=== PATIENT | male | born 1990 | race Two or more races ===

== ENCOUNTER → 2021-06-14 11:59 | Outpatient (BNVA) | payer SELFPAY | PROVIDERS: PCP Pediatrics; Visit Provider Nurse Practitioner Family | DX: Z13.89 Encounter for screening for other disorder (principal) ==

== ENCOUNTER → 2022-07-15 14:07 | Outpatient (BNVA) | payer OTHER, SELFPAY | PROVIDERS: PCP Pediatrics; Visit Provider Nurse Practitioner Family | DX: G24.9 Dystonia, unspecified (principal); F39 Unspecified mood [affective] disorder; Z96.89 Presence of other specified functional implants | CPT/HCPCS: 99212 ==

== ENCOUNTER → 2022-10-31 13:01 | Outpatient (BNVA) | payer OTHER, SELFPAY | PROVIDERS: PCP Pediatrics; Visit Provider Nurse Practitioner Family ==

== ENCOUNTER → 2022-10-31 13:01 | Outpatient (BNVA) | payer OTHER, SELFPAY | PROVIDERS: PCP Pediatrics; Visit Provider Nurse Practitioner Family ==

== ENCOUNTER 2022-11-06 15:28 | Outpatient (AMB) | payer OTHER, SELFPAY ==
--- NOTE | 2022-11-06 15:29 | A.OFFVIS_ITS ---
Intake Intake Visit Reasons: TELE f/u appt Intake Note: Patient for follow up. Patient states This is a follow up from our missed appointment the other day Allergies From DILANTIN Allergy (Unknown, Uncoded 11/06/22 15:29) BRUISING Phenytoin Sodium Allergy (Unknown, Uncoded 11/06/22 15:29) Unknown Medication List - Last Reconciled 11/06/22 by GOLDEN Parker acetaminophen (Tylenol) 325 mg PO QID PRN baclofen 40 mg (2 x 20 mg) PO TID 90 days chlorthalidone 50 mg PO DAILY clonazepam 1.5 mg (3 x 0.5 mg) PO BEDTIME 30 days clonazepam 2 mg PO QID 30 days diazepam 10 mg PO QID 30 days trazodone 50 mg PO BEDTIME HPI HPI Comments History of Present Illness Details 32-yr-old male presents for f/u televide o visit via [employer], accompanied by his mother and family. Pt's mother reports brain MRI was normal. Pt did not tolerate trial of Diazepam, his dystonia worsened. Since, we switched pt back to Clonazepam at a slightly increased dose of 2mg qid. His dytonia is less, but continues to be significant. He cannot walk. His body is often postured to one side. His hands are often flexed closed. It can be difficult to help pt wash/dress. Mom has decreased the Baclofen from 40mg tid to 40mg bid and 20mg qhs- as pt was having some urinary retention difficulties, which resolved with the dose reduction. He is eating and drinking well. His mood is better, pt is more open to attending appt's, and doing the f/u needed to replace his DBS. He had a tele-genetics visist yesterday- per mom, they have been advised to have genetic testing- but they are waiting to hear if insurance will cover this. [facility] Social History Alcohol intake: never Patient Tobacco Use Status: Never used Tobacco Review of Systems Const All systems reviewed & are unremarkable except as noted in HPI and below Physical Exam Const General: cooperative, no acute distress, well developed and alert Resp Effort & Inspection: normal respiratory effort and able to speak in complete sentences Neuro Other: Pt alert, non-verbal, does respond w/ his usual eye movements. Sitting reclined in his chair. Generalized dystonia- marked. 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 Code(s): G24.9 - Dystonia, unspecified (2) Status post deep brain stimulator placement: Comment: bilateral GPI Code(s): Z96.89 - Presence of other specified functional implants (3) Mood disorder: Code(s): F39 - Unspecified mood [affective] disorder Plan Increase Clonazepam from 2mg qid to 2-2.5mg qid- in hopes this lessens dystonia/spasticity- order sent for 0.5mg tab. Monitor for increased sedation. Diazepam- stopped- ineffective. Continue Artane 2mg 1/2 tab qam. Continue Baclofen up to 40mg tid Continue Trazodone 50mg qhs. Offered to retry Botox for hand posturing- pt declines at this time. F/u w/ [facility] r/t genetic, DBS work-up. Will request brain MRI report from [facility]. Future considerations- Trying alternate muscle relaxer to Baclofen- if increase in Clonazepam not effective or not tolertaed. f/u in 3 months or sooner prn. Medications: Changed From clonazepam 1.5 mg (3 x 0.5 mg) PO BEDTIME 30 days 90 tabs 3RF G24.9 - Dystonia, unspecified, Z96.89 - Presence of other specified functional implants To clonazepam take w/ 2mg tab (total 2.5mg qid) 0.5 mg PO QID 30 days 120 tabs 3RF G24.9 - Dystonia, unspecified, Z96.89 - Presence of other specified functional implants Telehealth Telehealth Location of provider rendering services: practice address Location of patient: address on file Patient Identification confirmed using: Name, : Yes Telehealth method: video Patient verbally consented to treatment: Yes Patient verbally consented to billing insurance company: Yes Patient informed of any privacy concerns related to visit: Yes Minutes spent on Phone/Video with Pt.: 22 Coding Level of Care Code Tele Est Pt Level 4 (24347) Diagnoses Dystonia G24.9 Status post deep brain stimulator placement Z96.89 Mood disorder F39
== END 2022-11-06 16:00 ==
PROVIDERS: PCP Pediatrics; Visit Provider Nurse Practitioner Family
DX: G24.9 Dystonia, unspecified (principal); Z96.82 Presence of neurostimulator; F39 Unspecified mood [affective] disorder
CPT/HCPCS: 99214

== ENCOUNTER → 2022-11-06 15:28 | Outpatient (BNVA) | payer OTHER, SELFPAY | PROVIDERS: PCP Pediatrics; Visit Provider Nurse Practitioner Family ==

== ENCOUNTER 2023-05-06 15:18 | Outpatient (AMB) | payer MEDICAID, SELFPAY ==
--- NOTE | 2023-05-06 15:34 | A.OFFVIS_ITS ---
Intake Intake Visit Reasons: Follow up Dystonia Intake Note: Patient presents for follow up dystonia. no issues or concerns Allergies From DILANTIN Allergy (Unknown, Uncoded 05/06/23 15:44) BRUISING Phenytoin Sodium Allergy (Unknown, Uncoded 05/06/23 15:44) Unknown Medication List - Last Reconciled 05/06/23 by GOLDEN Parker acetaminophen (Tylenol) 325 mg PO QID PRN baclofen 40 mg (2 x 20 mg) PO TID 90 days chlorthalidone 50 mg PO DAILY clonazepam 0.5 mg orally take w/ 2mg tab (total 2.5mg qid); 30 days clonazepam 2 mg PO QID 30 days diazepam 10 mg PO QID 30 days trazodone 50 mg PO BEDTIME HPI HPI Comments History of Present Illness Details 33 -yr-old male presents for f/u visit, accompanied by his caregivers. He did receive the results of the dystonia/movement d/o genetic [place] [facility] [place] no genetic etiology identified. He does not currently have a f/u w/ [facility]. Pt was doing PT, but this was paused as he had Covid-19. They would like a referral back to PT. They wonder about the Baclofen pump- however pt is not interested in this. He would be interested in revisiting the DBS. Pt continues to have bothersome generalized dystonia. His tongue will protrude while trying to eat. He needs extensive assist with all ADLs. He is not walking much. Denies any skin issues. His caregivers note that he is more flexible , has less movements, and can walk better w/ certain people, such as when his dtr's mother comes to visit. The increase in Clonazepam only helped some. He primarily communicates through verbal expression and eye movements. His caregivers note that pt is able to use a phone to say order from [employer] and has his own TicToc (though someone does help w/ this). He does not have a formal communication device. [facility] Social History Alcohol intake: never Patient Tobacco Use Status: Never used Tobacco Review of Systems Const All systems reviewed & are unremarkable except as noted in HPI and below Physical Exam Const General: cooperative and no acute distress Resp Effort & Inspection: normal respiratory effort and able to speak in complete sentences Neuro Other: Alert Non-verbal Communicates yes appropriately by upward eye movement, and more rarely w/ thumbs up sign. Marked generalized dystonia, prone to lumbar hyperextension. Right hand held in flexion- using a washcloth as a splint. Asked pt to perform finger-nose (pt-examiner), pt unable to initiate movement. 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 Code(s): G24.9 - Dystonia, unspecified (2) Gait difficulty: Code(s): R26.9 - Unspecified abnormalities of gait and mobility (3) Status post deep brain stimulator placement: Comment: bilateral GPI Code(s): Z96.89 - Presence of other specified functional implants (4) Mood disorder: Code(s): F39 - Unspecified mood [affective] disorder (5) Nonverbal: Code(s): R47.01 - Aphasia Plan Advised to call [facility] [place] [place] and make a f/u appt to discuss DBS. At this point, I would not think pt is a candidate for a baclofen pump d/t the severity of his generalized and trunk dystonia. Resume PT- order written. Will reach out to our Speech & Hearing clinic- ? if they can assist w/ obtaining an adaptive communication device. Trial CD-LD 25-100mg 1 tab bid- to see of dystonia is at all levodopa responsive, may need to try a higher dose to see full effect. Continue Clonazepam 2-2.5mg qid. Diazepam- stopped- ineffective. Continue Artane 2mg 1/2 tab qam. Continue Baclofen up to 40mg tid Continue Trazodone 50mg qhs. Offered to retry Botox for hand posturing- pt declines at this time. f/u in 3-4 months or sooner prn. Orders: Orders PT Evaluation and Treatment 05/06/23 G24.9 - Dystonia, unspecified, R26.9 - Unspecified abnormalities of gait and mobility, Z96.89 - Presence of other specified functional implants Medications: New carbidopa-levodopa 25-100 mg take w/ a cracker 30 minutes before breakfast and dinner, 1 tab PO BID 30 days 60 tabs 3RF Coding Level of Care Code Est Pt Level 4 (70877) Diagnoses Dystonia G24.9 Gait difficulty R26.9 Status post deep brain stimulator placement Z96.89 Mood disorder F39 Nonverbal R47.01
== END 2023-05-06 16:23 | disposition home or self-care (01) ==
PROVIDERS: PCP Pediatrics; Visit Provider Nurse Practitioner Family
DX: G24.9 Dystonia, unspecified (principal); R26.9 Unspecified abnormalities of gait and mobility; Z96.89 Presence of other specified functional implants; F39 Unspecified mood [affective] disorder; R47.01 Aphasia
CPT/HCPCS: 99214

== ENCOUNTER → 2023-05-06 15:18 | Outpatient (BNVA) | payer MEDICAID, SELFPAY | PROVIDERS: PCP Pediatrics; Visit Provider Nurse Practitioner Family | DX: G24.9 Dystonia, unspecified (principal); R26.9 Unspecified abnormalities of gait and mobility; F39 Unspecified mood [affective] disorder; R47.01 Aphasia; Z79.899 Other long term (current) drug therapy; Z96.89 Presence of other specified functional implants | CPT/HCPCS: 99212 ==

== ENCOUNTER 2023-09-10 13:12 | Outpatient (AMB) | payer MEDICAID, SELFPAY ==
--- NOTE | 2023-09-10 13:13 | MHC.OFFVIS ---
Intake Visit Reasons: 4 mo f/u-Unable to lvm Intake Note: Patient presents for 4 month follow up. 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 Family provides most of history, and pt endorses information through verbal expression and eye movements. Pt had recent [facility] admission for tx of pneumonia. Pt states he is home now- feeling better, but he still has some pulmonary congestion. [facility] [place] could not complete a MBS. They were advised to give him pureed foods and to not allow him to eat laying down. They are giving him very chopped up foods only when he is sitting up now that he is at home. Pt has an appt w/ PCP later today. Pt's family notes that while pt was hospitalized- all his po meds were stopped. He was given lorazepam instead of clonazepam. Per family- pt had increased dystonia and new onset hallucinations while admitted.. He had genetics f/u appt- per family, no genetic etiology for his dystonia was identified. Pt has not heard from [facility] for f/u appt yet. He is now open to using a communication device. Pt's mother states overall, pt has been much more agreeable to his medical care, appointments, etc. He is not sure that the CD-LD was helpful, so did not resume it upon returning home. Mom feels movements are a bit better since he is sitting up more regularly. Pt had been doing PT prior to the hospitalization, which he plans to resume. They mention PT advised them to try applying ankle weights to help pt stand up. Pt is cusious about stem cell tx- he has seen videos on-line baout this. [facility] Social History Alcohol intake: never Patient Tobacco Use Status: Never used Tobacco Review of Systems Const All systems reviewed & are unremarkable except as noted in HPI and below Physical Exam Const General: cooperative and no acute distress Resp Effort & Inspection: normal respiratory effort and able to speak in complete sentences Neuro Other: Non-verbal Communicates yes appropriately by upward eye movement, and more rarely w/ thumbs up sign. Generalized dystonia, prone to lumbar hyperextension- slightly decreased since last visit. Right hand held in flexion- using a washcloth as a splint. 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 We will f/u w/ [facility] and make a f/u appt to discuss DBS. Pt is motivated to attend all his emdical appt's at this time. At this point, I would not think pt is a candidate for a baclofen pump d/t the severity of his generalized and trunk dystonia. Resume PT. Order written for Speech & Hearing eval & tx- for safe swallowing strategies and eval for augmentative communication device. Will order Barrium swallow study. Continue to only eat sitting up and to sit up for 45-60 minutes after eating. Continue modified diet texture. Advised to double swallow after each bite. May continue to hold CD-LD 25-100mg 1 tab bid for now until his resp s/s have improved. Consider retrying once feeling better, may need to try a higher dose to see full effect. Continue Clonazepam 2.5mg qid. Continue Baclofen up to 40mg tid Continue Trazodone 50mg qhs. Offered to retry Botox for hand posturing- pt declines at this time. Previous trials- Diazepam- stopped- ineffective. Artane- not tolerated. ? f/u in 3-4 months or sooner prn. 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 0.5 mg PO QID 90 days 360 tabs 1RF Changed From clonazepam 2 mg PO QID 30 days 120 tabs 3RF G24.9 - Dystonia, unspecified To clonazepam 2 mg PO QID 90 days 360 tabs 1RF G24.9 - Dystonia, unspecified Discontinued clonazepam Discontinued Reason: Ancillary Entered New Order (1/2 x 1 mg) 0.5 mg orally take w/ 2mg tab (total 2.5mg qid); 30 days 60 tabs 3RF Coding Level of Care Code Est Pt Level 4 (23213) Diagnoses Dystonia G24.9 Status post deep brain stimulator placement Z96.89 Dysphagia R13.10 Communication impairment F80.9
== END 2023-09-10 14:09 | disposition home or self-care (01) ==
PROVIDERS: PCP Pediatrics; Visit Provider Nurse Practitioner Family
DX: G24.9 Dystonia, unspecified (principal); Z96.89 Presence of other specified functional implants; R13.10 Dysphagia, unspecified; F80.9 Developmental disorder of speech and language, unspecified
CPT/HCPCS: 99214

== ENCOUNTER → 2023-09-10 13:12 | Outpatient (BNVA) | payer MEDICAID, SELFPAY | PROVIDERS: PCP Pediatrics; Visit Provider Nurse Practitioner Family | DX: G24.9 Dystonia, unspecified (principal); R13.10 Dysphagia, unspecified; F80.9 Developmental disorder of speech and language, unspecified; Z96.89 Presence of other specified functional implants | CPT/HCPCS: 99212 ==

== ENCOUNTER → 2024-03-30 14:36 | Outpatient (AMB) | payer MEDICAID, SELFPAY ==
--- NOTE | 2024-03-30 14:37 | A.OFFVIS_ITS ---
Intake Visit Reasons: 6 Month f/u Intake Note: battery change in November. Allergies phenytoin [From Dilantin] Allergy (Unknown, Verified 03/30/24 14:40) Bruising Phenytoin Sodium Allergy (Unknown, Uncoded 09/10/23 13:18) Unknown Medication List - Last Reconciled 03/30/24 by GOLDEN Parker acetaminophen (Tylenol) 325 mg PO QID PRN baclofen 40 mg (2 x 20 mg) PO TID 90 days chlorthalidone 50 mg PO DAILY clonazepam 0.5 mg PO QID 90 days clonazepam 2 mg PO QID 90 days trazodone 50 mg PO BEDTIME HPI Comments Details: 33-yr-old male presents for f/u televideo visit, accompanied by his mother and dtr. Family provides most of history, and pt endorses information through verbal expression and eye movements. Visit was converted to televeideo today as patient has had flu-like symptoms for the past 3 days. Fever, cough, decreased appetite. He is taking fluids and resting. No acute shortness of breath. Pt underwent DBS battery replacement in November 2023, without complication. The DBS was activated in January. And the settings were further adjusted in February. Unfortunately, a few days after the last adjustment, he began having increased involuntary movements. His legs were moving up uncontrollably. So, patient's family turned the DBS off. He has follow-up appointment in [place] on April 29. They note, he was supposed to start home PT, however they have not heard from anybody yet. He is still open to using a communication device. Patient miss both the MBS and the THREADING MACHINE SETTER appointments in October, as he was hospitalized at that time for treatment of pneumonia. August 2023 MBS at [facility], results were nondiagnostic, as patient was unable to complete the exam due to involuntary movements and inability to ?follow directions?. [facility] Social History Alcohol intake: never Patient Tobacco Use Status: Never used Tobacco Physical Exam Const General: cooperative and no acute distress Resp Effort & Inspection: normal respiratory effort Neuro Other: Alert, responsive, non-verbal Appear slightly flushed Communicates yes appropriately by upward eye movement, and more rarely w/ thumbs up sign. Patient is laying in his bed, generalized dystonia- predominantly patient arms are extended overhead and legs posture in intermittent straight leg raises. 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 Reinforced that DBS therapy for dystonia may take days to weeks to see full effect from. Family is hoping that we can help manage DBS more locally, which we are happy to assist with, given Dr Noguera is in agreement. We will reorder home PT and THREADING MACHINE SETTER eval & tx, as patient can not leave his home in any capacity without physical assist from another person due to the severity of his generalized dystonia. PT eval and treat for range of motion, tone, mobility, pain eval and treat. THREADING MACHINE SETTER eval and treat for dysphagia. Once home PT/THREADING MACHINE SETTER is completed, we will re-initiate referral for Speech & Hearing eval & tx- for safe swallowing strategies and eval for augmentative communication device. We will reorder Barrium swallow study. Advised to to only eat sitting up and to sit up for 45-60 minutes after eating. Continue modified diet texture. Advised to double swallow after each bite. Continue Clonazepam 2.5mg qid. Continue Baclofen up to 40mg tid Continue Trazodone 50mg qhs. Offered to retry Botox for hand posturing- pt declines at this time. Previous trials- Diazepam- stopped- ineffective. Artane- not tolerated. CD-LD 25-100 mg 1 tab b.i.d.- patient did not find overly beneficial ? f/u in 3-4 months or sooner prn. Orders: Orders [place] Modified Barium Swallow Today G24.9 - Dystonia, unspecified, R13.10 - Dysphagia, unspecified, Z96.89 - Presence of other specified functional implants Referrals [facility] Referral F80.9 - Developmental disorder of speech and language, unspecified, G24.9 - Dystonia, unspecified, R13.10 - Dysphagia, unspecified, Z96.89 - Presence of other specified functional implants Medications: Discontinued carbidopa-levodopa 25-100 mg take w/ a cracker 30 minutes before breakfast and dinner, Discontinued Reason: Doctor's Order 1 tab PO BID 30 days 60 tabs 6RF Coding Level of Care Code Tele Est Pt Level 4 (23559) Diagnoses Dystonia G24.9 Status post deep brain stimulator placement Z96.89 Dysphagia R13.10 Communication impairment F80.9
--- OUTSIDE RECORDS SUMMARY | 2024-03-30 15:45 | XMS_ITS | Clinical Summary ---
Author Organization [employer] Address [address] [place] [address] 7 [place] [address] Care Team Providers Care Business Education Teacher Name Role Phone Ally Allen MD Primary Care Provider [phone] Allergies Active Allergy Reactions Criticality Noted Date Comments Phenytoin Hives,Rash Medium 09/04/2009 hematoma Medications FLUoxetine (PROzac) 10 MG capsule 10 MG ORALLY EVERY MORNING FOR 90 DAYS 3 Active clonazePAM (KlonoPIN) 2 MG tablet Take 1 tablet by mouth 4 times daily. 3 Active baclofen (Lioresal) 20 MG tablet TAKE 2 TABLETS BY MOUTH 3 TIMES A DAY FOR 90 DAYS 3 Active senna-docusate (Senokot S) 8.6-50 MG tablet Take 1 tablet by mouth at bed time. 0 Active chlorthalidone (Hygroton) 50 MG tabletIndications :Primary hypertension TAKE 1 TABLET BY MOUTH EVERY DAY 90 tablet 1 4 Active clonazePAM (KlonoPIN) 1 MG tablet Take 0.5 tablets by mouth 4 times daily. With 2 mg 4 Active albuterol (2.5 MG/3ML) 0.083% nebulizer solution INHALE 3 ML EVERY 6 HOURS NEEDED FOR WHEEZING 4 Active carbidopa-levodop a (Sinemet) 25-100 MG tablet PLEASE SEE ATTACHED FOR DETAILED DIRECTIONS 4 Active Misc. Devices (Pulse Oximeter For Finger) miscIndications:A spiration pneumonia, unspecified aspiration pneumonia type, unspecified laterality, unspecified part of lung (CMS/FORMER[facility]) Check O2 Sat every 4 hours. Call the office if O2 Sat < 90%. 1 each 4 Active guaiFENesin (Mucinex) 600 MG 12 hr tabletIndications :Aspiration pneumonia, unspecified aspiration pneumonia type, unspecified laterality, unspecified part of lung (CMS/HCC) Take 1 tablet (600 mg) by mouth 2 times daily. Do not crush, chew, or split. 30 tablet 4 09/11/19 25 Active traZODone (Desyrel) 50 MG tabletIndications :Insomnia due to medical condition TAKE 1 TABLET BY MOUTH EVERYDAY AT BEDTIME 90 tablet 2 4 Active Active Problems Problem Noted Date Diagnosed Date Benign essential hypertension 09/05/2015 Generalized dystonia 03/08/2012 Insomnia 03/08/2012 Movement disorder 03/31/2011 Overview (04/25/2022): Movement disorder - Dystonia Immunizations Name Administration Dates Next Due Influenza injectable quadriv alent IIV4 with preservative 04/24/2022 Social History Tobacco Use Types Packs/Day Years Used Date Smoking Tobacco: Never Passive Smoke Exposure: Never Smokeless Tobacco: Never Tobacco Cessation:Counseling Given: Not Answered Depression Answer Date Recorded Patient Health Questionnaire-9 Score 14 04/24/2022 Housing Stability Answer Date Recorded What is your housing situation today? I have sujata nuno 12/29/[address] you li ve. Do you have problems with any of the following? None of the above 12/29/2022 Food Insecurity Answer Date Recorded Within the past 12 months, y ou worried that your food would run out before you got money to buy more: Never True 12/29/2022 Within the past 12 months,th e food you bought just didn't last and you didn't have enough money to get more: Never True 07/2022 Transportation Answer Date Recorded In the past 12 months, has l ack of transportation kept you from medical appts, meetings, work or from getting things needed for daily living? No 12/29/2022 Utilities Answer Date Recorded In the past 12 months, has t he electric, gas, oil or water company threatened to shut off services in your home? No 12/29/2022 Depression Answer Date Recorded Patient Health Questionnaire-2 Score 4 04/24/2022 Sex and Gender Information Value Date Recorded Sex Assigned at Male 12/23/2021 10:19 AM EDT Legal Sex Male 10:19 AM EDT Gender Identity Male 12/23/2021 10:19 AM EDT Sexual Orientation Choose not to disclose 2021 10:19 AM EDT Last Filed Vital Signs Vital Sign Reading Time Taken Comments Blood Pressure 150/90 09/10/2023 2:58 PM EDT Pulse 127 09/10/2023 2:44 PM EDT Temperature 36.7 ??C (98 ??F) 04/24/2022 11:04 AM EST Respiratory Rate 20 09/10/2023 2:44 PM EDT Oxygen Saturation 92% 09/10/2023 2:44 PM EDT Inhaled Oxygen Concentration - - Weight 74.8 kg (165 lb) 09/10/2023 2:44 PM EDT Height 160 cm (5' 3 ) 03/22/2019 12:01 AM EST Body Mass Index 29.23 03/22/2019 12:01 AM EST Plan of Treatment Upcoming Encounters Date Type Department Care Team (Late st Contact Info) Description 05/05/2024 2:15 PM EDT Office Visit [facility] MED & PEDS [address] [place] [address] Ally Allen MD [address] [place] [address] Health Maintenance Due Date Last Done Comments HIV Screening 1992 Lipid Panel 1992 Alcohol/Substance Use Screening 2004 Family Planning (PISQ) 04/24/2007 Hepatitis C Screening 2010 Hepatitis B Vaccines (3 of 3 - 19+ 3-dose series) 04/18/2016 02/22/2016, 09/18/2015 Depression Monitoring (PHQ-9) 10/25/2022 04/24/2022, 04/24/2022 Depression Screening 04/25/2023 04/24/2022, 04/25/19 23 SDOH Screening 04/25/2023 04/24/2022 COVID-19 Vaccine ( season) 2023 Influenza Vaccine (#1) 2023 3, 02/22/2016, 10/26/2012, Additional history exists Tobacco Screening 09/09/2024 09/10/2023 DTaP/Tdap/Td Vaccines (2 - Td or Tdap) 09/04/2025 09/05/2015 Zoster Vaccines (1 of 2) 2042 RSV Patients and Patients Aged 60 years or older (1 - 1-dose 75+ series) 04/24/2067 HIB Vaccines Aged Out No longer eligi ble based on patient's age to complete this topic HPV Vaccines Aged Out No longer eligi ble based on patient's age to complete this topic Hepatitis A Vaccines Aged Out No long er eligible based on patient's age to complete this topic IPV Vaccines Aged Out No longer eligi ble based on patient's age to complete this topic Meningococcal Vaccine Aged Out No mojgan dante eligible based on patient's age to complete this topic Pneumococcal Vaccine: Pediatrics (0 to 5 Years) and At-Risk Patients (6 to 49) Years) Aged Out No longer eligible based on patient's age to complete this topic RSV under 20 months Aged Out No longe r eligible based on patient's age to complete this topic Rotavirus Vaccines Aged Out No longer eligible based on patient's age to complete this topic Insurance C3 Care Teams Business Education Teacher Relationship Specialty Start Date End Date Ally Allen MD [address] [place] [address] PCP - General Family Medicine 02/23/18
--- OUTSIDE RECORDS SUMMARY | 2024-03-30 15:45 | XMS_ITS | Encounter Summary ---
Author Organization [employer] [facility] Address [address] [place] [address] Care Team Providers Care Medical Laboratory Technicians Name Role Phone Ally Allen MD Primary Care Provider [phone] Encounter Details Date Type Department Care Team (Late Contact Info) Description 03/25/2022 Abstract [facility] MED & PEDS [address] [place] [address] Ally Allen MD [address] [place] [address] Social History Tobacco Use Types Packs/Day Years Used Date Smoking Tobacco: Never Assessed Sex and Gender Information Value Date Recorded Sex Assigned at Male 12/23/2021 10:19 AM EDT Legal Sex Male 10:19 AM EDT Gender Identity Male 12/23/2021 10:19 AM EDT Sexual Orientation Choose not to disclose 2021 10:19 AM EDT documented as of this encounter Plan of Treatment Upcoming Encounters Date Type Department Care Team (Late st Contact Info) Description 05/05/2024 2:15 PM EDT Office Visit [facility] MED & PEDS [address] [place] [address] Ally Allen MD [address] [place] [address] documented as of this encounter Visit Diagnoses Not on filedocumented in this encounter Care Teams Medical Laboratory Technicians Relationship Specialty Start Date End Date Ally Allen MD [address] [place] [address] PCP - General Family Medicine 02/23/18 documented as of this encounter
--- OUTSIDE RECORDS SUMMARY | 2024-03-30 15:45 | XMS_ITS | Encounter Summary ---
Author Organization [employer] [facility] Address [address] [place] [address] Care Team Providers Care Gps Field Data Collector Name Role Phone Ally Allen MD Primary Care Provider [phone] Reason for Visit * Reason Comments Med Refill Encounter Details Date Type Department Care Team (Late st Contact Info) Description 10/11/2022 Refill [facility] MED & PEDS [address] [place] [address] Ally Allen MD [address] [place] [address] Insomnia due to medical condition Social History Tobacco Use Types Packs/Day Years Used Date Smoking Tobacco: Never Passive Smoke Exposure: Never Smokeless Tobacco: Never Depression Answer Date Recorded Patient Health Questionnaire-9 Score 14 04/24/2022 Depression Answer Date Recorded Patient Health Questionnaire-2 [...] Description 05/05/2024 2:15 PM EDT Office Visit [facility] MED & PEDS [address] [place] [address] Ally Allen MD [address] [place] [address] documented as of this encounter Visit Diagnoses Diagnosis Insomnia due to medical condition Organic insomnia, unspecified documented in this encounter Additional Health Concerns Assessment Noted Time PHQ-9 Depression Total Score: 14 023 11:56 AM EST documented as of this encounter Care Teams Gps Field Data Collector Relationship Specialty Start Date End Date Ally Allen MD [address] [place] [address] PCP - General Family Medicine 02/23/18 documented as of this encounter
== END ==
PROVIDERS: PCP Pediatrics; Visit Provider Nurse Practitioner Family
DX: G24.9 Dystonia, unspecified (principal); Z96.89 Presence of other specified functional implants; R13.10 Dysphagia, unspecified; F80.9 Developmental disorder of speech and language, unspecified
CPT/HCPCS: 99214

== ENCOUNTER 2024-05-05 14:54 | Outpatient (REF) | payer MEDICAID, SELFPAY ==
[2024-05-05 17:43] LABS: MANUAL DIFF FLAG NO
[2024-05-05 18:01] LABS: Basophils Absolute Auto 0.1 X10*3/uL (0.0-0.2); Basophils Percent Auto 0.7 % (0-2); Eosinophils Absolute Auto 0.2 X10*3/uL (0.0-0.4); Hematocrit 49.1 % (42.0-52.0); Hemoglobin 16.6 g/dl (14.0-18.0); Imm Gran Abs Auto 0.04 X10*3/uL (0.00-0.03); Imm Gran Pct Auto 0.3 % (0.0-0.4); Lymphocytes Absolute Auto 3.2 X10*3/uL (1.2-4.9); Lymphocytes Percent Auto 26.5 % (20-40); Mean Corpuscular HGB Conc 33.8 g/dl (31.0-36.0); Mean Corpuscular Hemoglobin 27.2 pg (27.0-33.0); Mean Corpuscular Volume 80.4 fL (80.0-98.0); Mean Platelet Volume 10.8 fL (9.4-12.4); Monocytes Absolute Auto 0.7 X10*3/uL (0.1-1.2); Neutrophils Absolute Auto 7.8 x10*3/uL (2.0-8.3); Neutrophils Percent Auto 64.5 % (45-73); Platelet Count 414 X10*3/uL (160-400); Red Blood Count 6.11 X10*6/uL (4.60-5.80); Red Cell Distribution Width 14.1 % (11.0-16.0)
[2024-05-05 18:20] LABS: Alanine Aminotransferase 36 U/L (0-40); Albumin Level 4.5 g/dL (3.5-5.0); Alkaline Phosphatase 78 U/L (39-117); Anion Gap 16 (12-20); Aspartate Amino Transferase 32 U/L (5-37); Bilirubin Direct 0.2 mg/dL (0.0-0.5); Bilirubin Total 0.3 mg/dL (0.0-1.0); Blood Urea Nitrogen 25 mg/dL (9-16); Calcium 10.2 mg/dL (8.4-10.2); Carbon Dioxide 31 mmol/L (22-29); Chloride 100 mmol/L (96-108); Estimated Glomerular Filt Rate > 60; Glucose Random 97 mg/dL (60-115); Potassium 3.6 mmol/L (3.3-5.1); Sodium 143 mmol/L (135-145); Total Protein 8.4 g/dL (6.5-8.0)
[2024-05-05 18:36] LABS: TSH reflex Free T4 1.13 uIU/mL (0.32-4.0); Vitamin D 25-OH Total 24.6 ng/mL (>30)
--- OUTSIDE RECORDS SUMMARY | 2024-05-05 18:43 | XMS_ITS | Encounter Summary ---
Author Organization [employer] Address [address] [facility] [address] [place] [address] Care Team Providers Care Pivot End Polisher Name Role Phone Ally Allen MD Primary Care Provider [phone] Reason for Visit * Reason Comments Med Refill Encounter Details Date Type Department Care Team ([facility] st Contact Info) Description 04/13/2024 Refill [facility] CHC MED & PEDS [address] [place], [place] [phone] Ally Allen MD [address] [place], [place] [phone] Primary hypertension Social History Tobacco Use Types Packs/Day Years [...] as of this encounter Plan of Treatment Not on file documented as of this encounter Visit Diagnoses Diagnosis Primary hypertension Unspecified essential hypertension documented in this encounter Additional Health Concerns Assessment Noted Time PHQ-9 Depression Total Score: 14 023 11:56 AM EST documented as of this encounter Care Teams Pivot End Polisher Relationship Specialty Start Date End Date Ally Allen MD [address] [place] [address] PCP - General Family Medicine 02/23/18 documented as of this encounter
--- OUTSIDE RECORDS SUMMARY | 2024-05-05 18:43 | XMS_ITS | Encounter Summary ---
Author Organization [employer] Address [address] [place] [address] Care Team Providers Care Bessemer Converter Operator Name Role Phone Ally Allen MD Primary Care Provider [phone] Reason for Referral * Consultation (Urgent) - Pending Review Specialty Diagnoses / Procedures Referred By Emily arroyo Referred To Contact Occupational Therapy Diagnoses Generalized dystonia Ally Allen MD [address] [place] [address] Phone: tel: fax: Referral ID Status Reason Start Date Expiration Date Visits Requested Visits Authorized [id number] Pending Review Specialty Services Required 05/05/2024 05/05/2025 1 1 Encounter Details Date Type Department Care Team ([facility] st Contact Info) Description 05/05/2024 2:15 PM EDT Office Visit [facility] MED & PEDS [address] [place] [address] Ally Allen MD [address] [place] [address] Benign essential hypertension (Primary Dx); Generalized dystonia Social History Tobacco Use Types Packs/Day Years Used Date Smoking Tobacco: Never Passive Smoke Exposure: Never Smokeless Tobacco: Never Depression Answer Date Recorded Patient Health Questionnaire-9 Score 14 04/24/2022 Housing Stability Answer Date Recorded What is your housing situation today? I have sujata nuno 05/05/[address] you li ve. Do you have problems with any of the following? None of the above 05/05/2024 Food Insecurity Answer Date Recorded Within the past 12 months, y ou worried that your food would run out before you got money to buy more: Never True 05/05/2024 Within the past 12 months,th e food you bought just didn't last and you didn't have enough money to get more: Never True Transportation Answer Date Recorded In the past 12 months, has l ack of transportation kept you from medical appts, meetings, work or from getting things needed for daily living? No 05/05/2024 Utilities Answer Date Recorded In the past 12 months, has t he electric, gas, oil or water company threatened to shut off services in your home? No 05/05/2024 Depression Answer Date Recorded Patient Health Questionnaire-2 Score 4 04/24/2022 Internet Access Answer Date Recorded Internet Access Q1 Yes 05/05/2024 Internet Access Q2 Not on file 05/05/2024 Sex and Gender Information Value Date Recorded Sex Assigned at Male 12/23/2021 10:19 AM EDT Legal Sex Male 10:19 AM EDT Gender Identity Male 12/23/2021 10:19 AM EDT Sexual Orientation Choose not to disclose 2021 10:19 AM EDT documented as of this encounter Last Filed Vital Signs Vital Sign Reading Time Taken Comments Blood Pressure 150/100 05/05/2024 2:13 PM EDT Pulse 128 05/05/2024 2:13 PM EDT Temperature 36.4 ??C (97.6 ??F) 05/05/2024 2:13 PM ED T Respiratory Rate 20 05/05/2024 2:13 PM EDT Oxygen Saturation - - Inhaled Oxygen Concentration - - Weight 66.2 kg (146 lb) 05/05/2024 2:13 PM EDT Height - - Body Mass Index 25.86 03/22/2019 12:01 AM EST documented in this encounter Plan of Treatment Scheduled Orders Name Type Priority Associated Diagnoses Orde r Schedule Vitamin B12/Folate, Serum Panel Lab Routine Benign essential hypertension Generalized dystonia Expected: 05/05/2024, Expires: 05/05/2025 Scheduled Referrals Name Type Priority Associated Diagnoses Order Schedule Referral to Occupational Therapy Outpatient Referral Urgent Generalized dystonia Expected: 05/05/2024 (Approximate), Expires: 05/05/2025 documented as of this encounter Procedures Procedure Name Priority Date/Time Associated Diagnosis Comments VITAMIN D,25-OH,TOTAL,IA Routine 05/05/2024 2:58 PM EDT Benign essential hypertension Generalized dystonia TSH W/REFLEX TO FT4 Routine 05/05/2024 2 :58 PM EDT Benign essential hypertension Generalized dystonia CBC WITH AUTO DIFFERENTIAL Routine 05/05/2024 2:58 PM EDT Benign essential hypertension Generalized dystonia CREATINE KINASE, TOTAL Routine 05/05/2024 2:58 PM EDT Benign essential hypertension Generalized dystonia HEPATIC FUNCTION PANEL Routine 05/05/2024 2:58 PM EDT Benign essential hypertension Generalized dystonia BASIC METABOLIC PANEL Routine 05/05/2024 2:58 PM EDT Benign essential hypertension Generalized dystonia documented in this encounter Results * Creatine Kinase, Total (05/05/2024 2:58 PM EDT) Creatine Kinase Total 127 38 - 174 U/L [facility] Blood Venous blood specimen / Unknown 05/05/2024 2:58 PM EDT 05/05/2024 5:37 PM EDT us Ally Allen MD LAB BLOOD ORDERABLES Final Re sult Performing Organization Address [facility] Co de Phone Number [facility] [address] [place] [phone] * TSH W/Reflex to FT4 (05/05/2024 2:58 PM EDT) TSH reflex Free T4 1.13 0.32 - 4.0 uIU/mL [facility] Blood Venous blood specimen / Unknown 05/05/2024 2:58 PM EDT 05/05/2024 5:37 PM EDT Ally Allen MD LAB BLOOD ORDERABLES Final Re sult [facility] [address] [place] [address] [phone] * (ABNORMAL) Vitamin D, 25-Hydroxy, Total, Immunoassay (05/05/2024 2:58 PM EDT) Vitamin D 25-OH Total 24.6(L) >30 ng/mL [facility] Comment: Health Based Reference Values*< 20 ??ng/mL ??Rupxcwwhf60-61 ng/mL ??Insufficient> 30 ??ng/mL ??Sufficient*Terrell CHAMPION. N Engl J Med. 2007;357:266-280There is no well-established upper level of normal vitamin Dlevels. Some laboratories use 50 ng/mL as an upper limit ofnormal. However, toxicity is patient-dependent and may occurat any level. Careful correlation with the patient'spresentation is necessary and, if there is concern forvitamin D toxicity, treatment should be consideredirrespective of the serum level.Care must be taken in interpreting Vitamin D results fromdifferent laboratories and methodologies. ??Published datademonstrated that results from patients undergoinghemodialysis may show a negative bias when tested withvarious automated 25-OH vitamin D assays when compared toLC- MS/MS.When testing samples from patients whose predominant form ofVitamin D is Vitamin D2, such as patients receiving VitaminD2 supplementation, results that are subtherapeutic shouldbe confirmed with another method such as LC-MS/MS. Blood Venous blood specimen / Unknown 05/05/2024 2:58 PM EDT 05/05/2024 5:37 PM EDT us Ally Allen MD LAB BLOOD ORDERABLES Final Re aniyat Performing Organization Address [facility]/ZIP Co de Phone Number [facility] [address] [place] [address] [phone] * (ABNORMAL) Hepatic Function Panel (05/05/2024 2:58 PM EDT) Bilirubin, Total 0.3 0.0 - 1.0 mg/dL [facility] Bilirubin, Direct 0.2 0.0 - 0.5 mg/dL [facility] Aspartate Amino Transferase 32 5 - 37 U/L [facility] Alanine Aminotransferase 36 0 - 40 U/L [facility] Total Protein 8.4(H) 6.5 - 8.0 g/dL [facility] Albumin Level 4.5 3.5 - 5.0 g/dL [facility] Alkaline Phosphatase 78 39 - 117 U/L [facility] Blood Venous blood specimen / Unknown 05/05/2024 2:58 PM EDT 05/05/2024 5:37 PM EDT us Ally Allen MD LAB BLOOD ORDERABLES Final Re sult [facility] [address] [place], [place] [phone] * (ABNORMAL) CBC auto differential (05/05/2024 2:58 PM EDT) White Blood Count 12.0(H) 4.8 - 10.8 X10*3/uL [facility] Red Blood Count 6.11(H) 4.60 - 5.80 X10*6/uL [facility] Hemoglobin 16.6 14.0 - 18.0 g/dl [facility] Hematocrit 49.1 42.0 - 52.0 % [facility] Mean Corpuscular Volume 80.4 80.0 - 98.0 fL [facility] Mean Corpuscular Hemoglobin 27.2 27.0 - 33.0 pg [facility] Mean Corpuscular HGB Conc 33.8 31.0 - 36.0 g/dl [facility] Red Cell Distribution Width 14.1 11.0 - 16.0 % [facility] Platelet Count 414(H) 160 - 400 X10*3/uL [facility] Mean Platelet Volume 10.8 9.4 - 12.4 fL [facility] Neutrophils Percent Auto 64.5 45 - 73 % [facility] Imm Gran Pct Auto 0.3 0.0 - 0.4 % [facility] Lymphocytes Percent Auto 26.5 20 - 40 % [facility] Monocytes Percent Auto 6.0 2 - 11 % [facility] Eosinophils Percent Auto 2.0 0 - 4 % [facility] Basophils Percent Auto 0.7 0 - 2 % [facility] NRBC Pct Auto 0.0 0.0 - 0.2 /100WBC [facility] Neutrophils Absolute Auto 7.8 2.0 - 8.3 x10*3/uL [facility] Imm Gran Abs Auto 0.04(H) 0.00 - 0.03 X10*3/uL [facility] Lymphocytes Absolute Auto 3.2 1.2 - 4.9 X10*3/uL [facility] Monocytes Absolute Auto 0.7 0.1 - 1.2 X10*3/uL [facility] Eosinophils Absolute Auto 0.2 0.0 - 0.4 X10*3/uL [facility] Basophils Absolute Auto 0.1 0.0 - 0.2 X10*3/uL [facility] NRBC Abs Auto 0.000 0.0 - 0.012 X10*3/uL [facility] Blood Venous blood specimen / Unknown 05/05/2024 2:58 PM EDT 05/05/2024 5:37 PM EDT us Ally Allen MD LAB BLOOD ORDERABLES Final Re sult [facility] [address] [place] [address] [phone] * (ABNORMAL) Basic Metabolic Panel (05/05/2024 2:58 PM EDT) Sodium 143 135 - 145 mmol/L [facility] Potassium 3.6 3.3 - 5.1 mmol/L [facility] Chloride 100 96 - 108 mmol/L [facility] Carbon Dioxide 31(H) 22 - 29 mmol/L [facility] Anion Gap 16 12 - 20 [facility] Urea Nitrogen (BUN) 25(H) 9 - 16 mg/dL [facility] Creatinine, Serum 0.92 0.5 - 1.4 mg/dL [facility] Estimated Glomerular Filt Rate >60 [facility] Comment:Chronic Kidney Disea se: Estimated GFR < 60 mL/min/[id number] Kidney Disease: Estimated GFR < 15 mL/min/1.73m2 Glucose 97 60 - 115 mg/dL [facility] Calcium 10.2 8.4 - 10.2 mg/dL [facility] Blood Venous blood specimen / Unknown 05/05/2024 2:58 PM EDT 05/05/2024 5:37 PM EDT us Ally Allen MD LAB BLOOD ORDERABLES Final Re sult [facility] [address] [place] [address] [phone] documented in this encounter Visit Diagnoses Diagnosis Benign essential hypertension- Primary Essential hypertension, benign Generalized dystonia Abnormal involuntary movements documented in this encounter Additional Health Concerns Assessment Noted Time PHQ-9 Depression Total Score: 14 023 11:56 AM EST documented as of this encounter Care Teams Bessemer Converter Operator Relationship Specialty Start Date End Date Ally Allen MD [address] [place] [address] PCP - General Family Medicine 02/23/18 documented as of this encounter
--- OUTSIDE RECORDS SUMMARY | 2024-05-05 18:43 | XMS_ITS | Encounter Summary ---
Author Organization [employer] Address [address] [place] [address] Care Team Providers Care Concrete Products Dispatcher Name Role Phone Ally Allen MD Primary Care Provider [phone] Reason for Visit * Reason Comments Pre-visit Planning SDOH will need to be completed in office. Encounter Details Date Type Department Care Team ([facility] st Contact Info) Description 04/28/2024 Patient Outreach [facility] MED & PEDS [address] [place], [place] [phone] Ally Allen MD [address] [place] [address] Pre-visit Planning (SDOH will need to be completed in office. ) Social History Tobacco Use Types Packs/Day Years Used Date Smoking Tobacco: Never Passive Smoke Exposure: Never Smokeless Tobacco: Never Depression Answer Date Recorded Patient Health Questionnaire-9 Score 14 04/24/2022 Housing Stability Answer Date Recorded What is your housing situation today? I have sujataulises nuno 12/29/[address] you [...] AM EDT documented as of this encounter Progress Notes * Bharti Azul - 04/28/2024 10:27 AM EST CC Bharti Chavez placed successful outbound call to patient for pre-visit planning. Patient name and confirmed. Patient confirms appt date and time, and has transportation arrangements. Biggest concern for appointment at this time is no concerns. Appropriate screenings completed in anticipation ofappointment. documented in this encounter Plan of Treatment Not on file documented as of this encounter Visit Diagnoses Not on filedocumented in this encounter Additional Health Concerns Assessment Noted Time PHQ-9 Depression Total Score: 14 023 11:56 AM EST documented as of this encounter Care Teams Concrete Products Dispatcher Relationship Specialty Start Date End Date Ally Allen MD [address] [place] [address] PCP - General Family Medicine 02/23/18 documented as of this encounter
--- OUTSIDE RECORDS SUMMARY | 2024-05-05 18:43 | XMS_ITS | Encounter Summary ---
Author Organization [employer] [facility] Address [address] [place] [address] Care Team Providers Care Hide Dropper Name Role Phone Ally Allen MD Primary Care Provider [phone] Reason for Visit * Reason Comments Med Refill Encounter Details Date Type Department Care Team ([facility] st Contact Info) Description 10/11/2022 Refill [facility] MED & PEDS [address] [place] [address] Ally Allen MD [address] [place] [address] Insomnia due to medical condition Social History [...] documented as of this encounter Care Teams Hide Dropper Relationship Specialty Start Date End Date Ally Allen MD [address] [place] [address] PCP - General Family Medicine 02/23/18 documented as of this encounter
--- OUTSIDE RECORDS SUMMARY | 2024-05-05 18:43 | XMS_ITS | Clinical Summary ---
Author Organization [employer] Address [address] [place] [address] 7 [place] [address] Care Team Providers Care Rand Butting Machine Operator Name Role Phone Ally Allen MD Primary Care Provider [phone] Allergies Active Allergy Reactions Criticality Noted Date Comments Phenytoin Hives,Rash Medium 09/04/2009 hematoma Medications FLUoxetine (PROzac) 10 MG capsule 10 MG ORALLY EVERY MORNING FOR 90 DAYS 03/30/19 23 Active clonazePAM (KlonoPIN) 2 MG tablet Take 1 tablet by mouth 4 times daily. 04/02/19 23 Active baclofen (Lioresal) 20 MG tablet TAKE 2 TABLETS BY MOUTH 3 TIMES A DAY FOR 90 DAYS 03/30/19 23 Active senna-docusate (Senokot S) 8.6-50 MG tablet Take 1 tablet by mouth at bed time. 01/26/20 20 Active clonazePAM (KlonoPIN) 1 MG tablet Take 0.5 tablets by mouth 4 times daily. With 2 mg 08/07/19 24 Active albuterol (2.5 MG/3ML) 0.083% nebulizer solution INHALE 3 ML EVERY 6 HOURS NEEDED FOR WHEEZING 08/28/19 24 Active carbidopa-levod opa (Sinemet) 25-100 MG tablet PLEASE SEE ATTACHED FOR DETAILED DIRECTIONS 05/06/19 24 Active Misc. Devices (Pulse Oximeter For Finger) miscIndications :Aspiration pneumonia, unspecified aspiration pneumonia type, unspecified laterality, unspecified part of lung (CMS/HCC) Check O2 Sat every 4 hours. Call the office if O2 Sat < 90%. 1 each 09/10/19 24 Active traZODone (Desyrel) 50 MG tabletIndicatio ns:Insomnia due to medical condition TAKE 1 TABLET BY MOUTH EVERYDAY AT BEDTIME 90 tablet 2 10/19/19 24 Active chlorthalidone (Hygroton) 50 MG tabletIndicatio ns:Primary hypertension TAKE 1 TABLET BY MOUTH EVERY DAY 90 tablet 1 04/13/19 25 Active clonazePAM (KlonoPIN) 0.5 MG tablet TAKE 1 TABLET ORALLY 4 TIMES A DAY FOR 90 DAYS TAKE W/ EACH DOSE OF CLONAZEPAM 2MG TO TOTAL 2.5MG. 04/22/19 25 Active chlorthalidone (Hygroton) 50 MG tabletIndicatio ns:Primary hypertension TAKE 1 TABLET BY MOUTH EVERY DAY 90 tablet 1 07/01/19 24 025 Discontinued guaiFENesin (Mucinex) 600 MG 12 hr tabletIndicatio ns:Aspiration pneumonia, unspecified aspiration pneumonia type, unspecified laterality, unspecified part of lung (CMS/HCC) Take 1 tablet (600 mg) by mouth 2 times daily. Do not crush, chew, or split. 30 tablet 09/11/19 24 025 Discontinued(T herapy completed) Active Problems Problem Noted Date Diagnosed Date Benign essential hypertension 09/05/2015 Generalized dystonia 03/08/2012 Insomnia 03/08/2012 Movement disorder 03/31/2011 Overview (04/25/2022): Movement disorder - Dystonia Encounters Date Type Department Care Team Description 05/05/2024 2:15 PM EDT Office Visit [facility] [address] [place] [address] Ally Allen MD Benign essential hypertension (Primary Dx); Generalized dystonia 05/05/2024 Travel 04/28/2024 Patient Outreach [facility] [address] [place] [address] Ally Allen MD Pre-visit Planning (SDOH will need to be completed in office. ) 04/13/2024 Refill [facility] [address] [place] [address] Ally Allen MD Primary hypertension from Last 3 Months Immunizations Name Administration Dates Next Due Influenza [...] 20 05/05/2024 2:13 PM EDT Oxygen Saturation 92% 09/10/2023 2:44 PM EDT Inhaled Oxygen Concentration - - Weight 66.2 kg (146 lb) 05/05/2024 2:13 PM EDT Height 160 cm (5' 3 ) 03/22/2019 12:01 AM EST Body Mass Index 25.86 03/22/2019 12:01 AM EST Plan of Treatment Health Maintenance Due Date Last Done Comments HIV Screening 1992 Lipid Panel 1992 Family Planning (PISQ) 04/24/2007 Hepatitis C Screening 2010 Hepatitis B Vaccines (3 of 3 - 19+ 3-dose series) 04/18/2016 02/22/2016, 09/18/2015 Depression Monitoring (PHQ-9) 10/25/2022 04/24/2022, 04/24/2022 Depression Screening 04/25/2023 04/24/2022, 04/25/19 23 COVID-19 Vaccine ( season) 2023 Influenza Vaccine (#1) 2023 , 02/22/2016, 10/26/2012, Additional history exists Alcohol/Substance Use Screening 05/05/2025 05/05/2024 SDOH Screening 05/05/2025 05/05/2024 Tobacco Screening 05/05/2025 05/05/2024 DTaP/Tdap/Td Vaccines (2 - Td or Tdap) [...] on patient's age to complete this topic Procedures Procedure Name Priority Date/Time Associated Diagnosis Comments CREATINE KINASE, TOTAL Routine 05/05/2024 2:58 PM EDT Benign essential hypertension Generalized dystonia TSH W/REFLEX TO FT4 Routine 05/05/2024 2 :58 PM EDT Benign essential hypertension Generalized dystonia VITAMIN D,25-OH,TOTAL,IA Routine 05/05/2024 2:58 PM EDT Benign essential hypertension Generalized dystonia HEPATIC FUNCTION PANEL Routine 05/05/2024 2:58 PM EDT Benign essential hypertension Generalized dystonia CBC WITH AUTO DIFFERENTIAL Routine 05/05/2024 2:58 PM EDT Benign essential hypertension Generalized dystonia BASIC METABOLIC PANEL Routine 05/05/2024 2:58 PM EDT Benign essential hypertension Generalized dystonia from Last 3 Months Results * (ABNORMAL) Vitamin D, 25-Hydroxy, Total, Immunoassay (05/05/2024 2:58 PM EDT) [facility] Vitamin D 25-OH Total 24.6(L) >30 ng/mL [facility] Comment: Health Based Reference Values*< 20 ??ng/mL ??[id number] ng/mL ??Insufficient> 30 ??ng/mL ??Sufficient*Terrell CHAMPION. N [...] ORDERABLES Final Re sult Performing Organization Address [facility]/ZIP Co de Phone Number [facility] [address] [place] [phone] * TSH W/Reflex to FT4 (05/05/2024 2:58 PM EDT) TSH reflex Free T4 1.13 0.32 - 4.0 uIU/mL [facility] Blood Venous blood specimen / Unknown 05/05/2024 2:58 PM EDT 05/05/2024 5:37 PM EDT Ally Allen MD LAB BLOOD ORDERABLES Final Re sult Performing Organization Address [facility] Co de Phone Number [facility] [address] [place] [phone] * (ABNORMAL) CBC auto differential (05/05/2024 2:58 PM EDT) White Blood Count 12.0(H) 4.8 - 10.8 X10*3/uL [facility] Red Blood Count 6.11(H) 4.60 - 5.80 X10*6/uL [facility] Hemoglobin 16.6 14.0 - 18.0 g/dl [facility] Hematocrit 49.1 42.0 - 52.0 % [facility] Mean Corpuscular Volume 80.4 80.0 - 98.0 fL [facility] Mean Corpuscular Hemoglobin 27.2 27.0 - 33.0 pg [facility] Mean Corpuscular HGB Conc 33.8 31.0 - 36.0 g/dl [facility] Red Cell Distribution Width 14.1 11.0 - 16.0 % [facility] Platelet Count 414(H) 160 - 400 X10*3/uL [facility] Mean Platelet Volume 10.8 9.4 - 12.4 fL [facility] Neutrophils Percent Auto 64.5 45 - 73 % [facility] Imm Gran Pct Auto 0.3 0.0 - 0.4 % [facility] Lymphocytes Percent Auto 26.5 20 - 40 % [facility] Monocytes Percent Auto 6.0 2 - 11 % [facility] Eosinophils Percent Auto 2.0 0 - 4 % [facility] Basophils Percent Auto 0.7 0 - 2 % [facility] NRBC Pct Auto 0.0 0.0 - 0.2 /100WBC [facility] Neutrophils Absolute Auto 7.8 2.0 - 8.3 x10*3/uL [facility] Imm Gran Abs Auto 0.04(H) 0.00 - 0.03 X10*3/uL [facility] Lymphocytes Absolute Auto 3.2 1.2 - 4.9 X10*3/uL [facility] Monocytes Absolute Auto 0.7 0.1 - 1.2 X10*3/uL [facility] Eosinophils Absolute Auto 0.2 0.0 - 0.4 X10*3/uL [facility] Basophils Absolute Auto 0.1 0.0 - 0.2 X10*3/uL [facility] NRBC Abs Auto 0.000 0.0 - 0.012 X10*3/uL [facility] Blood Venous blood specimen / Unknown 05/05/2024 2:58 PM EDT 05/05/2024 5:37 PM EDT us Ally Allen MD LAB BLOOD ORDERABLES Final Re sult [facility] [address] [place] [phone] * Creatine Kinase, Total (05/05/2024 2:58 PM EDT) Creatine Kinase Total 127 38 - 174 U/L [facility] Blood Venous blood specimen / Unknown 05/05/2024 2:58 PM EDT 05/05/2024 5:37 PM EDT Ally Allen MD LAB BLOOD ORDERABLES Final Re sult Performing Organization Address [facility] Co de Phone Number [facility] [address] [place] [address] [phone] * (ABNORMAL) Hepatic Function Panel (05/05/2024 2:58 PM EDT) Pathologist [facility] Bilirubin, Total 0.3 0.0 - 1.0 mg/dL [facility] Bilirubin, Direct 0.2 0.0 - 0.5 mg/dL [facility] Aspartate Amino Transferase 32 5 - 37 U/L [facility] Alanine Aminotransferase 36 0 - 40 U/L [facility] Total Protein 8.4(H) 6.5 - 8.0 g/dL [facility] Albumin Level 4.5 3.5 - 5.0 g/dL [facility] Alkaline Phosphatase 78 39 - 117 U/L [facility] Blood Venous blood specimen / Unknown 05/05/2024 2:58 PM EDT 05/05/2024 5:37 PM EDT Ally Allen MD LAB BLOOD ORDERABLES Final Re sult Performing Organization Address [facility] Co de Phone Number [facility] [address] [place] [phone] [phone] * (ABNORMAL) Basic Metabolic Panel (05/05/2024 2:58 PM EDT) Pathologist [facility] Sodium 143 135 - 145 mmol/L [facility] Potassium 3.6 3.3 - 5.1 mmol/L [facility] Chloride 100 96 - 108 mmol/L [facility] Carbon Dioxide 31(H) 22 - 29 mmol/L [facility] Anion Gap 16 12 - 20 [facility] Urea Nitrogen (BUN) 25(H) 9 - 16 mg/dL [facility] Creatinine, Serum 0.92 0.5 - 1.4 mg/dL [facility] Estimated Glomerular Filt Rate >60 [facility] Comment:Chronic Kidney Disea se: Estimated GFR < 60 mL/min/1.63q4Kiekde Kidney Disease: Estimated GFR < 15 mL/min/1.73m2 Glucose 97 60 - 115 mg/dL [facility] Calcium 10.2 8.4 - 10.2 mg/dL [facility] Blood Venous blood specimen / Unknown 05/05/2024 2:58 PM EDT 05/05/2024 5:37 PM EDT us Ally Allen MD LAB BLOOD ORDERABLES Final Re sult [facility] [address] [place] [phone] [phone] from Last 3 Months Insurance C3 Care Teams Rand Butting Machine Operator Relationship Specialty Start Date End Date Ally Allen MD [address] [place] [phone] PCP - General Family Medicine 02/23/18
--- OUTSIDE RECORDS SUMMARY | 2024-05-05 18:43 | XMS_ITS | Encounter Summary ---
Author Organization [employer] Address [address] [place] [id number] Care Team Providers Care Prenatal Genetic Counselor Name Role Phone Ally Allen MD Primary Care Provider [phone] Encounter Details Date Type Department Care Team ([facility] st Contact Info) Description 03/25/2022 Abstract [facility] [address] [place] [address] Ally Allen MD [address] [place] [address] Social History Tobacco Use Types Packs/Day Years [...] on filedocumented in this encounter Care Teams Prenatal Genetic Counselor Relationship Specialty Start Date End Date Ally Allen MD [address] [place] [address] PCP - General Family Medicine 02/23/18 documented as of this encounter
--- OUTSIDE RECORDS SUMMARY | 2024-05-05 18:43 | XMS_ITS | Encounter Summary ---
Author Organization [employer] Address [address] [facility] [address] [place] [address] Care Team Providers Care Affiliate Marketing Manager Name Role Phone Ally Allen MD Primary Care Provider [phone] Encounter Details Date Type Department Care Team (Latest Contact Info) Description 05/05/2024 Travel Social History Tobacco Use Types Packs/Day Years [...] documented as of this encounter Care Teams Affiliate Marketing Manager Relationship Specialty Start Date End Date Ally Allen MD [address] [place] [phone] PCP - General Family Medicine 02/23/18 documented as of this encounter
[2024-05-05 18:49] LABS: Folate 14.6 ng/mL (> or = 4.0); Vitamin B12 700 pg/mL (200-900)
== END 2024-05-05 14:55 | disposition home or self-care (01) ==
LOC: HO.CHCLDS 14:54
PROVIDERS: Visit Provider Pediatrics
DX: I10 Essential (primary) hypertension (principal); G24.9 Dystonia, unspecified
CPT/HCPCS: 36415; 80048; 80076; 82306; 82550; 82607; 82746; 84443; 85025

== ENCOUNTER 2024-10-28 12:04 | Outpatient (AMB) | payer MEDICAID, SELFPAY ==
--- NOTE | 2024-10-28 12:04 | A.OFFVIS_ITS ---
Vital Signs 10/28/24 12:13 BP 120/72 Blood Pressure Location Lt brachial Position Sitting Intake Visit Reasons: medication F/U Intake Note: battery change in November. Golf Course Ranger Required: No Accompanied by: Mother Allergies phenytoin (From Dilantin) Allergy (Unknown, Verified 10/28/24 12:12) Bruising Phenytoin Sodium Allergy (Unknown, Uncoded 09/10/23 13:18) Unknown Medication List - Last Reconciled 10/28/24 by GOLDEN Parker acetaminophen (Tylenol) 325 mg PO QID PRN baclofen 40 mg (2 x 20 mg) PO TID 90 days chlorthalidone 50 mg PO DAILY clonazepam 2 mg PO QID 90 days clonazepam 0.5 mg PO QID 90 days trazodone 50 mg PO BEDTIME HPI Comments Details: 34-yr-old male presents for follow-up visit for generalized dystonia. Patient is accompanied by his mother and dtr. Family provides most of history, and pt e ndorses information through verbal expression and eye movements. Since the last visit, reduced his Clonazepam dose as he found this to be more sedating. However family notes that patient is having increased movements dystonia. * Of note, patient had received insurance noticed that his insurance would not cover his clonazepam as ordered, however patient's mother states this is because his Medicare had temporarily been suspended. And states it is read activated, and she is going to be enroll patient in [facility] * Current clonazepam regimen: 2mg 10:30am, 0.5mg q 1-3 pm, 2mg 5-6pm, 2mg 11pm. He went to [facility] 3 months ago- his DBS was turned back on at a lower setting. Patient's mother states that [facility] states that we can adjust the DBS here. Swallow evaluation was unable to be performed due to patient's movements. Patient declined to follow-up with ER NURSE and eval and treat for communication device His PCP has placed an order for a new w/c through [facility]. His PCP is also ordering PT. Patient declined the ER NURSE eval for the communication device, but now would like to after he completes the PT. 03/30/2024, Previous HPI: Visit was converted to televeideo today as patient has had flu-like symptoms for the past 3 days. Fever, cough, decreased appetite. He is taking fluids and resting. No acute shortness of breath. Pt underwent DBS battery replacement in November 2023, without complication. The DBS was activated in January. And the settings were further adjusted in February. Unfortunately, a few days after the last adjustment, he began having increased involuntary movements. His legs were moving up uncontrollably. So, patient's family turned the DBS off. He has follow-up appointment in [place] on April 29. They note, he was supposed to start home PT, however they have not heard from anybody yet. He is still open to using a communication device. Patient miss both the MBS and the ER NURSE appointments in October, as he was hospitalized at that time for treatment of pneumonia. August 2023 MBS at [facility], results were nondiagnostic, as patient was unable to complete the exam due to involuntary movements and inability to ?follow directions?. [facility] Social History Alcohol intake: never Patient Tobacco Use Status: Never used Tobacco Physical Exam Vital Signs: Last Vital Signs BP 120/72 10/28/24 12:13 Const General: cooperative and no acute distress Resp Effort & Inspection: normal respiratory effort Neuro Other: Alert, responsive, non-verbal Communicates yes appropriately by upward eye movement, and more rarely w/ thumbs up sign. 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 * Once established, consider OT eval and treat for home equipment eval * Once above completed, we will refer back for ER NURSE eval and treat for dysphagia and will re-initiate referral for Speech & Hearing eval & tx- for safe swallowing strategies and eval for augmentative communication device. Start a stent out XR 6 mg daily at bedtime- in hopes this lessens involuntary movements Increase Clonazepam to 2mg-0.5mg-2mg-0.5mg-2mg-0.5mg-2mg Continue Baclofen up to 40mg tid Continue Trazodone 50mg qhs. Offered to retry Botox for hand posturing- pt declines at this time. Previous trials- Diazepam- stopped- ineffective. Artane- not tolerated. CD-LD 25-100 mg 1 tab b.i.d.- patient did not find overly beneficial ? f/u in 3-4 months or sooner prn. Medications: New deutetrabenazine ER (Austedo XR) At bedtime 6 mg PO DAILY 30 tabs 1RF 30 days Coding Level of Care Code Est Pt Level 4 (26139) Diagnoses Dystonia G24.9 Status post deep brain stimulator placement Z96.89 Other dysphagia R13.19 Dysphagia type: other dysphagia Communication impairment F80.9
[2024-10-28 12:13] VITALS: BP 120/72
--- OUTSIDE RECORDS SUMMARY | 2024-10-28 12:43 | XMS_ITS | Clinical Summary ---
Author Organization [employer] Address [address] [place] [address] [address] [place] [address] Care Team Providers Care Glass Engraver Name Role Phone Ally Allen MD Primary Care Provider [phone] Allergies Active Allergy Reactions Criticality Noted Date [...] by mouth at bed time. 0 Active clonazePAM (KlonoPIN) 1 MG tablet Take [...] Sat < 90%. 1 each 4 Active chlorthalidone (Hygroton) 50 MG tabletIndications :Primary hypertension TAKE 1 TABLET BY MOUTH EVERY DAY 90 tablet 1 5 Active clonazePAM (KlonoPIN) 0.5 MG tablet TAKE 1 TABLET ORALLY 4 TIMES A DAY FOR 90 DAYS TAKE W/ EACH DOSE OF CLONAZEPAM 2MG TO TOTAL 2.5MG. 5 Active traZODone (Desyrel) 50 MG tabletIndications :Insomnia due to medical condition TAKE 1 TABLET BY MOUTH EVERYDAY AT BEDTIME 90 tablet 2 5 Active atenolol-chlortha lidone (Tenoretic) 50-25 MG tabletIndications :Benign essential hypertension Take 1 tablet by mouth Once per day. 30 tablet 11 5 10/21/19 26 Active Active Problems Problem Noted Date Diagnosed Date Benign essential hypertension 09/05/2015 Generalized dystonia 03/08/2012 Insomnia 03/08/2012 Movement disorder 03/31/2011 Overview (04/25/2022): Movement disorder - Dystonia Encounters Date Type Department Care Team Description 10/21/2024 Telephone [facility] [address] [place] [address] Ally Allen MD 10/20/2024 1:30 PM EDT Office Visit [facility] [address] [place] [address] Ally Allen MD Generalized dystonia (Primary Dx); Movement disorder; Benign essential hypertension 10/20/2024 Travel from Last 3 Months Immunizations Immunization Administration Dates Next Due Influenza injectable quadriv alent IIV4 with preservative 04/24/2022 Social History Tobacco Use Types Packs/Day Years Used Date Smoking Tobacco: Never Passive Smoke Exposure: Never Smokeless Tobacco: Never Tobacco Cessation:Counseling Given: Not Answered Depression Answer Date Recorded Patient Health Questionnaire-9 Score 0 10/20/2024 Patient Health Questionnaire-9 Score 0 10/20/2024 Last PHQ-9: Questionnaire Data Not on file 0 10/20/2024 Housing Stability Answer Date Recorded What is [...] Answer Date Recorded Patient Health Questionnaire-2 Score 0 10/20/2024 Internet Access Answer Date Recorded Internet Access Q1 Yes 05/05/2024 Internet Access Q2 Not on file 05/05/2024 Sex and Gender Information Value Date Recorded Sex Assigned at Male 12/23/2021 10:19 AM EDT Legal Sex Male 10:19 AM EDT Gender Identity Male 12/23/2021 10:19 AM EDT Sexual Orientation Straight 10/25/2024 3: 48 PM EDT Last Filed Vital Signs Vital Sign Reading Time Taken Comments Blood Pressure 130/90 10/20/2024 1:32 PM EDT Pulse 112 10/20/2024 1:32 PM EDT Temperature 36.2 C (97.1 F) 10/20/2024 1:32 PM EDT Respiratory Rate 24 10/20/2024 1:32 PM EDT Oxygen Saturation 92% 09/10/2023 2:44 PM EDT Inhaled Oxygen Concentration - - Weight 65.8 kg (145 lb) 10/20/2024 1:32 PM EDT Height 160 cm (5' 3 ) 03/22/2019 12:01 AM EST Body Mass Index 25.69 03/22/2019 12:01 AM EST Plan of Treatment Health Maintenance Due Date Last Done Comments HIV Screening 1992 Lipid Panel 1992 Family Planning (PISQ) 04/24/2007 HPV Vaccines (1 - Male 3-dose series) 04/24/2007 Hepatitis C Screening 2010 Hepatitis B Vaccines (3 of 3 - 19+ 3-dose series) 04/18/2016 02/22/2016, 09/18/2015 COVID-19 Vaccine ( season) 2024 Influenza Vaccine (#1) 2024 , 02/22/2016, 10/26/2012, Additional history exists Alcohol/Substance Use Screening 05/05/2025 05/05/2024 Disability Screening 05/05/2025 05/05/2024 SDOH Screening 05/05/2025 05/05/2024 DTaP/Tdap/Td Vaccines (2 - Td or Tdap) 09/04/2025 09/05/2015 Depression Screening 10/20/2025 10/20/2024, 10/21/19 25 Tobacco Screening 10/20/2025 10/20/2024 Zoster Vaccines (1 of 2) 2042 RSV [...] patient's age to complete this topic Meningococcal B Vaccine Aged Out No l onger eligible based on patient's age to complete this topic Meningococcal Vaccine Aged Out No mojgan dante eligible based on patient's age to complete this topic Pneumococcal Vaccine: Pediatrics (0 to 5 Years) and At-Risk Patients (6 to 49) Years Aged Out No longer eligible based on patient's age to complete this topic RSV under 20 months Aged Out No longe r eligible based on patient's age to complete this topic Rotavirus Vaccines Aged Out No longer eligible based on patient's age to complete this topic Insurance STANDARD MEDICARE Care Teams Glass Engraver Relationship Specialty Start Date End Date Ally Allen MD [address] [place] [phone] PCP - General Family Medicine 02/23/18
--- OUTSIDE RECORDS SUMMARY | 2024-10-28 12:43 | XMS_ITS | Clinical Summary ---
Author Organization [facility] Address [address] [address] Phone Care Team Providers Care Policy Writer Sales Name Role Phone Ally Allen MD Primary Care Provider [phone] Rocio Issa MD Unavailable [phone] Allergies Active Allergy Reactions Criticality Noted Date Comments Dilantin (Phenytoin Sodium Extended) Hives 08/04/2016 Phenytoin Unknown Medium 09/04/2009 hematoma Medications chlorthalidone (HYGROTON) 50 MG tablet Take 1 tablet by mouth daily. 08/06/2022 Active acetaminophen (TYLENOL) 325 mg tablet Take 2 tablets (650 mg total) by mouth every 6 (six) hours as needed (You should take this every 6 hours for 2 days after surgery, then you can take as needed). 11/27/2023 Active baclofen (LIORESAL) 20 MG tablet Take 20 mg by mouth 3 (three) times a day. 03/04/2024 Active clonazePAM (KLONOPIN) 0.5 MG tablet Take 0.5 mg by mouth 4 (four) times a day. 04/22/2024 Active traZODone (DESYREL) 50 MG tablet Take 50 mg by mouth nightly at bedtime. Active Active Problems Problem Noted Date Diagnosed Date Benign essential hypertension 09/05/2015 Hypertension 05/30/2014 Overview (01/30/2015): Hypertensive disorder Generalized dystonia 03/08/2012 Insomnia 03/08/2012 Movement disorder 03/31/2011 Overview (04/15/2014): Movement disorder - Dystonia Social History Tobacco Use Types Packs/Day Years Used Date Smoking Tobacco: Never Smokeless Tobacco: Never Tobacco Cessation:Counseling Given: Not Answered Alcohol Use Standard Drinks/Week Comments Never 0 (1 standard drink = 0.6 oz pur e alcohol) Education Answer Date Recorded Are you interested in more education? Not on libby e 06/19/2022 Are you concerned about learning? Not on file 06/19/2022 No 06/19/2022 No 06/19/2022 Digital Access Answer Date Recorded No 07/21/2022 No 07/21/2022 Reliable internet access at home? Not on file 07/21/2022 Device with a working camera? Not on file Intimate Partner Violence Answer Date R ecorded Are you denied basic needs s uch as food, clothing, or medical care? Patient unable to respond 11/27/2023 In the past 12 months have y ou been in a relationship with a person who hurts, threatens, or tries to control you? Patient unable to respond 11/27/2023 Are you denied basic needs s uch as food, clothing, or medical care? Patient unable to respond 11/27/2023 In the past 12 months have y ou been in a relationship with a person who hurts, threatens, or tries to control you? Patient unable to respond 11/27/2023 Sex and Gender Information Value Date Recorded Sex Assigned at Male 03/10/2023 3:15 PM EST Legal Sex Male 8:08 PM EST Gender Identity Male 03/10/2023 3:15 PM EST Sexual Orientation Not on file Last Filed Vital Signs Vital Sign Reading Time Taken Comments Blood Pressure 136/102 02/12/2024 1:34 PM EST Pulse 137 02/12/2024 1:34 PM EST Temperature 36.9 C (98.5 F) 05/19/2024 1:45 PM EDT Respiratory Rate 16 02/12/2024 1:29 PM EST Oxygen Saturation 96% 02/12/2024 1:34 PM EST Inhaled Oxygen Concentration - - Weight 74.8 kg (165 lb) 02/12/2024 1:29 PM EST Height 162.6 cm (5' 4.02 ) 02/12/2024 1:29 PM ES T Body Mass Index 28.31 02/12/2024 1:29 PM EST Plan of Treatment Health Maintenance Due Date Last Done Comments Adult Td,Tdap Booster 1992 DEPRESSION SCREENING 2004 HEPATITIS C SCREENING 2010 HIV ONE-TIME SCREENING (18-65 YEARS) 2010 POTASSIUM LEVEL 09/05/2010 09/05/2009, 07/25, 08/17/2009, Additional history exists BLOOD PRESSURE 08/12/2024 02/12/2024 INFLUENZA VACCINE (#1) 2024 04/24/2022 COVID-19 VACCINE (2023- season) 2024 SMOKING STATUS SCREENING (Once After 26 Yrs) Completed 05/19/2024 HEPATITIS A VACCINES Aged Out No long er eligible based on patient's age to complete this topic HIB VACCINES Aged Out No longer eligi ble based on patient's age to complete this topic MENINGOCOCCAL VACCINES (ACWY) Aged Out No longer eligible based on patient's age to complete this topic MENINGOCOCCAL VACCINES (B) Aged Out N o longer eligible based on patient's age to complete this topic PNEUMOCOCCAL VACCINES (0-49 years) Aged Out No longer eligible based on patient's age to complete this topic Medical Devices Implanted Type Area Yarn Washer Device Identifier Shelf Expiration Date Model / Serial / Lot Kamran Stimulator Plug Connector Dbs Sensight - [id number] Implanted:Qty: 1 on 11/27/2023 by Adam Woodward MD, PhD at [facility] N/A: [employer] 07/03/2024 [id number] / / [id number] Neurostimulator Deep Brain Rechargeable Implantable Percept Rc - [id number] Implanted:Qty: 1 on 11/27/2023 by Adam Woodward MD, PhD at [facility] Right: [employer] 09/19/2025 [id number] / [id number] / Neurostimulator Deep Brain Rechargeable Implantable Percept Rc - [id number] Implanted:Qty: 1 on 11/27/2023 by Adam Woodward MD, PhD at [facility] Left: [employer] [facility] 08/06/2025 [id number] / [id number] / Procedures Procedure Name Priority Date/Time Associated Diagnosis Comments HISTORICAL LAB Routine 09/05/2009 3:50 PM EDT from Last 3 Months or Most Recently Relevant to Health Maintenance Results * Historical Lab (09/05/2009 3:50 PM EDT) Plasma Sodium 136 135 - 145 mmol/L [facility] Plasma Potassium 4.7 3.4 - 4.8 mmol/L [facility] Comment:SLIGHTLY HEMOLYZED Plasma Chloride 101 100 - 108 mmol/L [facility] Plasma Carbon Dioxide 23.7 23.0 - 31.9 mmol/L [facility] Plasma Urea Nitrogen 9 8 - 25 mg/dl [facility] Plasma Creatinine 1.00 0.60 - 1.50 mg/dl [facility] Plasma Glucose 94 70 - 110 mg/dl [facility] Calcium 8.9 8.5 - 10.5 mg/dl [facility] eGFR Estimated GFR not calculated for patients <18 years old. mL/min/1 .73m2 [facility] Plasma Anion GAP 11 3 - 15 mmol/L [facility] 09/05/2009 3:50 PM EDT 09/05/2009 3:50 PM EDT Comment:BLOOD Rosas Henderson MD, PhD LAB BLOOD ORDERABLES Final Result [address] [address] from Last 3 Months or Most Recently Relevant to Health Maintenance Insurance MEDICARE PART A & B Member Subscriber Plan / Payer (Ef fective 2012-Present) Name:Bret Barton Member ID:[id number] Relation to Subscriber:Self Name:Bret Barton Subscriber ID:[id number] Payer ID:[id number] Group ID:Not on file Type:Medicare Address: [employer] [address] [place] [id number] [place] PART A & [facility] MEDICARE PART A & B MEDICARE PART A & B MEDICARE PART A & [place] MEDICARE [place] Care Teams Policy Writer Sales Relationship Specialty Start Date End Date Ally Allen MD [address] [place] [address] PCP - General 08/23/13 Rocoi Issa MD [address] [facility] [address] [place] [address] Neurologist Psychiatry 05/12/21 Additional Source Comments The information contained in this document represents components of the legal health record. It is not the complete legal health record.[facility]
--- OUTSIDE RECORDS SUMMARY | 2024-10-28 12:43 | XMS_ITS | Encounter Summary ---
Author Organization [employer] [facility] Address [address] [place] [address] [place] [address] Care Team Providers Care Project Scientist Name Role Phone Ally Allen MD Primary Care Provider [phone] Reason for Visit * Reason Comments Med Refill Encounter Details Date Type Department Care Team ([facility] st Contact Info) Description 10/11/2022 Refill [facility] CH[facility] MED & PEDS [address] [place] [address] Ally Allen MD [address] [place] [address] Insomnia due to medical condition Social History [...] Orientation Straight 10/25/2024 3: 48 PM EDT documented as of this encounter Plan of Treatment Not on file documented as of this encounter Visit Diagnoses Diagnosis Insomnia due to medical condition Organic insomnia, unspecified documented in this encounter Additional Health Concerns Assessment Noted Time PHQ-9 Depression Total Score: 14 023 11:56 AM EST documented as of this encounter Care Teams Project Scientist Relationship Specialty Start Date End Date Ally Allen MD [address] [place] [address] PCP - General Family Medicine 02/23/18 documented as of this encounter
--- OUTSIDE RECORDS SUMMARY | 2024-10-28 12:43 | XMS_ITS | Encounter Summary ---
Author Organization [facility] Address [address] [facility] [address] [place] [address] Phone Care Team Providers Care Egg Trayer Name Role Phone Ally Allen MD Primary Care Provider [phone] Rocio Issa MD Unavailable [phone] Encounter Details Date Type Department Care Team (Late st Contact Info) Description 11/27/2023 Procedure Pass [facility] PERIOPERATIVE DEPT [address] [place] [address] Social History Tobacco Use Types Packs/Day Years Used Date Smoking Tobacco: Never Smokeless Tobacco: Never Alcohol Use Standard Drinks/Week Comments Never 0 [...] PM EST Sexual Orientation Not on file documented as of this encounter Plan of Treatment Not on file documented as of this encounter Visit Diagnoses Not on filedocumented in this encounter Care Teams Egg Trayer Relationship Specialty Start Date End Date Ally Allen MD [address] [place] [id number] PCP - General 08/23/13 Rocio Issa MD [address] [place] [id number] Neurologist Psychiatry 05/12/21 documented as of this encounter Additional Source Comments The information contained in this document represents components of the legal health record. It is not the complete legal health record.[facility]
--- OUTSIDE RECORDS SUMMARY | 2024-10-28 12:43 | XMS_ITS | Encounter Summary ---
Author Organization [employer] [facility] Address [address] [place] [address] Care Team Providers Care Assistant Warehouse Manager Name Role Phone Ally Allen MD Primary Care Provider [phone] Encounter Details Date Type Department Care Team ([facility] st Contact Info) Description 03/25/2022 Abstract [facility] CHC MED & PEDS [address] [place] [address] Ally Allen MD [address] [place] [address] Social History Tobacco Use Types Packs/Day Years [...] on filedocumented in this encounter Care Teams Assistant Warehouse Manager Relationship Specialty Start Date End Date Ally Allen MD [address] [place] [address] PCP - General Family Medicine 02/23/18 documented as of this encounter
== END 2024-10-28 12:55 | disposition home or self-care (01) ==
LOC: HO.HSMS 12:04
PROVIDERS: PCP Pediatrics; Visit Provider Nurse Practitioner Family
DX: G24.9 Dystonia, unspecified (principal); Z96.82 Presence of neurostimulator; R13.19 Other dysphagia; F80.9 Developmental disorder of speech and language, unspecified
CPT/HCPCS: 99214

== ENCOUNTER → 2024-10-28 12:04 | Outpatient (BNVA) | payer MEDICAID, SELFPAY | PROVIDERS: PCP Pediatrics; Visit Provider Nurse Practitioner Family | DX: G24.9 Dystonia, unspecified (principal); R13.19 Other dysphagia; F80.9 Developmental disorder of speech and language, unspecified; Z96.89 Presence of other specified functional implants | CPT/HCPCS: 99212 ==